=== PATIENT | female | born 1940 | race Caucasian/White ===

== ENCOUNTER 2019-09-20 10:12 | Outpatient (REF) | payer MEDICARE, SELFPAY ==
[2019-09-20 20:03] LABS: Anion Gap 9.2 mmol/L (3-11); BUN 12 mg/dL (7-18); CO2 27.8 mmol/L (21.0-32.0); Calcium 9.5 mg/dL (8.5-10.1); Chloride 101 mmol/L (98-107); Glucose 125 mg/dL (70-100); Potassium 3.8 mmol/L (3.5-5.1); Sodium 138 mmol/L (136-145)
[2019-09-20 20:15] LABS: Troponin I < 0.05 ng/mL (0.00-0.06)
== END 2019-09-20 10:32 ==
LOC: NCHCN 10:12
PROVIDERS: PCP Nurse Practitioner Family; Visit Provider Nurse Practitioner Family
DX: R07.89 Other chest pain (principal)
CPT/HCPCS: 80048; 84484

== ENCOUNTER 2020-06-18 15:37 | Outpatient (REF) | payer MEDICARE, SELFPAY ==
[2020-06-18 19:18] LABS: HCT 37.9 % (36.0-46.0); HGB 12.4 g/dL (11.2-15.7); MCH 28.8 pg (27.0-33.0); MCHC 32.7 % (32.0-36.0); MCV 88.1 fL (80-95); MPV 9.8 fL (8.0-11.0); Platelet Count 330 10^3/uL (130-400); RDW 12.3 % (11.7-14.6); RDW-SD 39.4 fL; WBC 8.12 10^3/uL (4.4-10.8)
[2020-06-18 19:33] LABS: Anion Gap 10.1 mmol/L (3-11); BUN 12 mg/dL (7-18); CO2 27.9 mmol/L (21.0-32.0); CREATININE 0.89 mg/dL (0.55-1.02); Calcium 9.3 mg/dL (8.5-10.1); Chloride 100 mmol/L (98-107); Glucose 107 mg/dL (74-106); Potassium 3.6 mmol/L (3.5-5.1); Sodium 138 mmol/L (136-145)
== END 2020-06-18 15:57 ==
LOC: NCHCN 15:37
PROVIDERS: PCP Nurse Practitioner Family; Visit Provider Nurse Practitioner Family
DX: R19.7 Diarrhea, unspecified (principal); R35.0 Frequency of micturition
CPT/HCPCS: 80048; 85027; 87086

== ENCOUNTER 2021-02-01 15:02 | Outpatient (REF) | payer MEDICARE, SELFPAY ==
[2021-02-03 13:58] LABS: COVID-19 RT-PCR UVMMC Result Positive (Negative)
== END 2021-02-01 15:03 | disposition home or self-care (01) ==
LOC: NCHCN 15:02
PROVIDERS: PCP Nurse Practitioner Family; Visit Provider Internal Medicine
DX: Z20.822 Contact with and (suspected) exposure to COVID-19 (principal)
CPT/HCPCS: U0003